=== PATIENT | female | born 2000 | race African-American/Black ===

== ENCOUNTER 2018-04-20 12:55 | Emergency (ER) | payer OTHER ==
[2018-04-20 13:29] VITALS: BP 138/85; PULSE 110; RESP 17; TEMP 98.4; O2SAT 100
--- NOTE | 2018-04-20 16:11 | PD ---
HPI Chief Complaint: Dizziness Time Seen by Provider: 16:06 Travel History International Travel<30 days: No Contact w/Intl Traveler<30days: No Traveled to known affect area: No History of Present Illness HPI This is a 17-year-old female who presents to the emergency department with dizziness and lightheadedness that started several days ago, intermittent, moderate severity, feeling like she is going to pass out associated with a dull headache. She has never had symptoms like this before. She is due to get her menstrual cycle this week but does not think she could be . She does have an aunt with severe anemia. She has also had 2 deaths in the family recently. [facility] Past Medical History Medical History: Denies Significant Hx LMP: 03/22/18 Social History Tobacco Use: No Allergies-Medications (Allergen,Severity, Reaction): Coded Allergies: No Known Allergies (Unverified , 04/20/18) Reported Meds & Prescriptions Reported Meds & Active Scripts Active No Active Prescriptions or Reported Medications Review of Systems Except as stated in HPI: all other systems reviewed are Neg Physical Exam Narrative GENERAL:Well appearing, no acute distress SKIN: Focused skin assessment warm and dry. HEAD: Atraumatic. Normocephalic. EYES: Pupils equal and round. No injection or drainage. ENT: Moist mucous membranes NECK: Trachea midline. CARDIOVASCULAR: Regular rate and rhythm. No murmur appreciated. RESPIRATORY: Clear to auscultation. Breath sounds equal bilaterally. GASTROINTESTINAL: Abdomen soft, non-tender, nondistended. MUSCULOSKELETAL: No obvious deformities. NEUROLOGICAL: Awake and alert. No obvious cranial nerve deficits. Moving all extremities. PSYCHIATRIC: Appropriate mood and affect; insight and judgment normal. Data Data Last Documented VS Vital Signs Date Time Temp Pulse Resp B/P (MAP) Pulse Ox O2 Delivery O2 Flow Rate FiO2 04/20/18 13:29 98.4 110 17 138/85 (102) 100 Orders Orders Complete Blood Count With Diff (04/20/18 16:09) Comprehensive Metabolic Panel (04/20/18 16:09) Electrocardiogram (04/20/18 ) ^ Insert Iv (04/20/18 16:09) Ed Urine Pregnancytest Poc (04/20/18 16:09) Urinalysis - C+S If Indicated (04/20/18 16:09) Labs Laboratory Tests Test 04/20/18 16:21 White Blood Count 5.3 TH/MM3 Red Blood Count 4.41 MIL/MM3 Hemoglobin 14.1 GM/DL Hematocrit 41.2 % Mean Corpuscular Volume 93.4 FL Mean Corpuscular Hemoglobin 32.1 PG Mean Corpuscular Hemoglobin Concent 34.3 % Red Cell Distribution Width 12.4 % Platelet Count 272 TH/MM3 Mean Platelet Volume 9.4 FL Neutrophils (%) (Auto) 50.4 % Lymphocytes (%) (Auto) 41.3 % Monocytes (%) (Auto) 6.9 % Eosinophils (%) (Auto) 1.1 % Basophils (%) (Auto) 0.3 % Neutrophils # (Auto) 2.7 TH/MM3 Lymphocytes # (Auto) 2.2 TH/MM3 Monocytes # (Auto) 0.4 TH/MM3 Eosinophils # (Auto) 0.1 TH/MM3 Basophils # (Auto) 0.0 TH/MM3 CBC Comment DIFF FINAL Differential Comment Urine Color YELLOW Urine Turbidity HAZY Urine pH 5.0 Urine Specific [place] 1.027 Urine Protein NEG mg/dL Urine Glucose (UA) NEG mg/dL Urine Ketones NEG mg/dL Urine Occult Blood NEG Urine Nitrite NEG Urine Bilirubin NEG Urine Leukocyte Esterase TRACE Urine RBC LESS THAN 1 /hpf Urine WBC 3 /hpf Urine Squamous Epithelial Cells 4 /hpf Urine Mucus FEW /lpf Microscopic Urinalysis Comment CULT NOT INDICATED Blood Urea Nitrogen 9 MG/DL Creatinine 0.83 MG/DL Random Glucose 78 MG/DL Total Protein 8.2 GM/DL Albumin 4.1 GM/DL Calcium Level 8.8 MG/DL Alkaline Phosphatase 63 U/L Aspartate Amino Transf (AST/SGOT) 32 U/L Alanine Aminotransferase (ALT/SGPT) 21 U/L Total Bilirubin 0.6 MG/DL Sodium Level 138 MEQ/L Potassium Level 4.2 MEQ/L Chloride Level 105 MEQ/L Carbon Dioxide Level 25.1 MEQ/L Anion Gap 8 MEQ/L Estimat Glomerular Filtration Rate 107 ML/MIN [facility] Medical Decision Making Medical Screen Exam Complete: Yes Emergency Medical Condition: Yes Interpretation(s) afebrile, tachycardic, normotensive No leukocytosis No leukocytosis Electrolytes are reassuring Urinalysis is negative for infection EKG: No arrhythmia, normal QT [id number] is negative Differential Diagnosis , arrhythmia, anemia, electrolyte abnormality Narrative Course This is a 17-year-old female who presents to the emergency department with lightheadedness and dizziness it has been going on for several days. EKG demonstrates no arrhythmia. Labs are reassuring. test is negative. She is well-appearing on exam. I think she can be discharged home and follow- up with outpatient primary care physician. Diagnosis Primary Impression: Lightheadedness Patient Instructions: General Instructions Additional Instructions: If you develop severe chest pain, shortness of breath, sweating, lightheadedness , dizziness or difficulty breathing return to the emergency department immediately. Followup with your primary care physician in 2-3 days if your symptoms are not resolved. Med/Other Pt SpecificInfo: No Change to Meds Scripts No Active Prescriptions or Reported Meds Disposition: 01 DISCHARGE HOME Condition: Stable Violet Sloan MD Apr 20, 2018 16:11
[2018-04-20 16:45] LABS: AUTOMATED NEUTROPHIL # 2.7 TH/MM3 (1.8-7.7); BASOPHIL % 0.3 % (0.0-2.0); EOSINOPHIL # 0.1 TH/MM3 (0-0.4); EOSINOPHIL % 1.1 % (0.0-4.0); HEMATOCRIT 41.2 % (35.0-46.0); HEMOGLOBIN 14.1 GM/DL (11.6-15.3); LYMPH % 41.3 % (9.0-44.0); LYMPHOCYTE # 2.2 TH/MM3 (1.0-4.8); MEAN CELL VOLUME 93.4 FL (80.0-100.0); MEAN CORPUSCULAR HEMOGLOBIN 32.1 PG (27.0-34.0); MEAN CORPUSCULAR HGB CONC 34.3 % (32.0-36.0); MEAN PLATELET VOLUME 9.4 FL (7.0-11.0); MONO % 6.9 % (0.0-8.0); MONOCYTE # 0.4 TH/MM3 (0-0.9); NEUT % 50.4 % (16.0-70.0); PLATELET COUNT 272 TH/MM3 (150-450); RED BLOOD COUNT 4.41 MIL/MM3 (4.00-5.30); RED CELL DISTRIBUTION WIDTH 12.4 % (11.6-17.2); WHITE BLOOD COUNT 5.3 TH/MM3 (4.0-11.0)
[2018-04-20 16:46] LABS: BILIRUBIN, URINE NEG (NEG); BLOOD, URINE NEG (NEG); GLUCOSE,URINE NEG (NEG); KETONE, URINE NEG (NEG); MUCUS URINE FEW /lpf (OCC); NITRITE,URINE NEG (NEG); SQUAMOUS EPITHELIAL CELL URINE 4 /hpf (0-5); URINE COLOR YELLOW (YELLW/STRAW); URINE LEUKOCYTE ESTERASE TRACE (NEG)
[2018-04-20 17:06] LABS: ALKALINE PHOSPHATASE 63 U/L (45-117); TOTAL BILIRUBIN ADULT 0.6 MG/DL (0.2-1.0); TOTAL PROTEIN 8.2 GM/DL (6.4-8.2)
[2018-04-20 17:18] LABS: ALBUMIN 4.1 GM/DL (3.4-5.0); ALT (GPT) 21 U/L (9-42); AST (GOT) 32 U/L (16-38); BICARBONATE 25.1 MEQ/L (21.0-32.0); BLOOD UREA NITROGEN 9 MG/DL (7-18); CALCIUM 8.8 MG/DL (8.5-10.1); CHLORIDE 105 MEQ/L (98-107); CREATININE 0.83 MG/DL (0.50-1.00); GLOMERULAR FILTRATION RATE 107 ML/MIN (>89); GLUCOSE,RANDOM 78 MG/DL (74-106); SODIUM (NA) 138 MEQ/L (136-145)
--- NOTE | 2018-04-20 20:50 | EKG ---
Date Performed: 04/20/2018 Time Performed: 16:23:14 PTAGE: 17 years EKG: Sinus rhythm WITH SINUS ARRHYTHMIA NORMAL ECG NO PREVIOUS TRACING DOCTOR: Reji Mathis Interpretating Date/Time 04/20/2018 20:48:29
== END 2018-04-20 17:47 | disposition home or self-care (01) ==
LOC: EDSEX 12:55 → NEPD 12:55
DX: R42 Dizziness and giddiness (principal); R51 Headache
CPT/HCPCS: 80053; 81001; 84703; 85025; 93005; 99284